=== PATIENT | male | born 1995 | race African-American/Black ===

== ENCOUNTER 2023-08-08 19:56 | Emergency (ER) | payer OTHER ==
[~2023-08-08] VITALS: Ht 172.7 cm; Wt 83.9 kg
[2023-08-08] MEDS ORDERED: Bacitracin Zinc 14 GM TUBE T ONE (20:10)
[2023-08-08] MEDS ORDERED: SILVER SULFADIAZINE 25 GM TUBE T ONE (20:20)
[2023-08-08 20:24] LABS: BASO # 0.1 10*3/uL (0.0-0.1); BASO % 0.6 % (0.0-1.0); EOS # 0.1 10*3/uL (0.0-0.4); EOS % 0.9 % (1.0-4.0); HEMATOCRIT 52.2 % (42.0-52.0); LYMPH # 1.8 10*3/uL (1.3-4.4); LYMPH % 22.9 % (27.0-41.0); MEAN CELL VOLUME 82.1 fl (80.0-94.0); MEAN CORPUSCULAR HGB 27.2 pg (27.0-31.0); MEAN CORPUSCULAR HGB CONC 33.1 g/dl (33.0-37.0); MEAN PLATELET VOLUME 11.3 fl (9.6-12.3); MONO # 0.4 10*3/uL (0.1-1.0); MONO % 5.3 % (3.0-9.0); NEUT # 5.6 10*3/uL (2.3-7.9); NEUT % 70.2 % (47.0-73.0); PLATELET COUNT AUTOMATED 230 10*3/uL (130-400); RED BLOOD COUNT 6.36 10*6/uL (4.50-5.90); RED CELL DISTRI WIDTH 12.7 % (0-14.5)
[2023-08-08 20:43] LABS: ALKALINE PHOSPHATASE 96 U/L (46-116); BUN 9 mg/dl (9-23); CHLORIDE 103 mmol/L (98-107); CPK 132 U/L (34-171); LIPASE 29 U/L (12-53); POTASSIUM 3.6 mmol/L (3.4-5.1); SGPT/ALT 10 U/L (5-49); TOTAL PROTEIN 8.2 gm/dL (6.0-8.0)
[2023-08-08] MEDS ORDERED: [UNRECOGNIZED DRUG - OTHER] T (21:02)
[2023-08-08] MEDS ORDERED: BACITRACIN28.4 GM T (21:02)
[2023-08-08] MEDS ORDERED: CEPHALEXIN500 M1 PO (21:02)
[2023-08-08] MEDS ORDERED: SILVADENE20 GM T (21:16)
== END 2023-08-08 21:30 | disposition home or self-care (01) ==
LOC: ED 19:56
PROVIDERS: Internal Medicine
DX: T23.202A Burn of second degree of left hand, unspecified site, initial encounter (principal); T31.0 Burns involving less than 10% of body surface; X08.8XXA Exposure to other specified smoke, fire and flames, initial encounter; Y93.89 Activity, other specified; Y92.89 Other specified places as the place of occurrence of the external cause; Y99.8 Other external cause status

== ENCOUNTER → 2023-08-10 | Outpatient (CLI) | payer OTHER ==
[~2023-08-10] MED LIST: BACITRACIN28.4 GM T; CEPHALEXIN500 M1 PO; SILVADENE20 GM T; [UNRECOGNIZED DRUG - OTHER] T
== END | disposition home or self-care (01) ==
LOC: WOUNDCARE 14:44
PROVIDERS: ATTEND Nurse Practitioner Family
DX: T23.202A Burn of second degree of left hand, unspecified site, initial encounter (principal); T31.0 Burns involving less than 10% of body surface; L98.9 Disorder of the skin and subcutaneous tissue, unspecified; X08.8XXA Exposure to other specified smoke, fire and flames, initial encounter; Y93.89 Activity, other specified; Y92.89 Other specified places as the place of occurrence of the external cause; Y99.8 Other external cause status

== ENCOUNTER → 2023-08-17 | Outpatient (CLI) | payer OTHER | END | disposition home or self-care (01) | LOC: WOUNDCARE 02:19 | PROVIDERS: ATTEND Nurse Practitioner Family | DX: T23.202D Burn of second degree of left hand, unspecified site, subsequent encounter (principal); T31.0 Burns involving less than 10% of body surface; L98.9 Disorder of the skin and subcutaneous tissue, unspecified; X08.8XXD Exposure to other specified smoke, fire and flames, subsequent encounter ==

== ENCOUNTER → 2023-08-25 | Outpatient (CLI) | payer OTHER | END | disposition home or self-care (01) | LOC: WOUNDCARE 01:01 | PROVIDERS: ATTEND Nurse Practitioner Family | DX: T23.202D Burn of second degree of left hand, unspecified site, subsequent encounter (principal); T31.0 Burns involving less than 10% of body surface; L98.9 Disorder of the skin and subcutaneous tissue, unspecified; X08.8XXD Exposure to other specified smoke, fire and flames, subsequent encounter ==